=== PATIENT | female | born 2000 | race Caucasian/White ===

== ENCOUNTER 2025-08-26 12:05 | Outpatient (CLI) | payer BC ==
[2025-08-26 12:52] LABS: PLATELET COUNT (AUTO) 294 K/uL (150-450); RED BLOOD CELL COUNT(AUTO) 5.82 MIL/uL (4.0-5.2); RED CELL DISTRIBUTION WIDTH 16.5 % (11.5-15.0); WHITE BLOOD COUNT (AUTO) 8.8 K/uL (4.3-11.0)
[2025-08-26 13:12] LABS: APPEARANCE,URINE CLEAR (CLEAR); BLOOD, URINE NEGATIVE Ery/uL (NEGATIVE); LEUKOCYTE ESTERASE ,URINE NEGATIVE (NEGATIVE); NITRITE, URINE NEGATIVE (NEGATIVE); UGLUCOSE NEGATIVE (NEGATIVE)
[2025-08-26 13:15] LABS: ERYTHROCYTE SEDIMENTATION RATE 8 MM/HR (0-20)
[2025-08-26 13:18] LABS: IRON, SERUM 128 ug/dl (50-175)
[2025-08-26 13:22] LABS: LDL 70 mg/dL (0-99)
[2025-08-26 13:58] LABS: ASPARTATE AMINOTRANSFERASE 17 U/L (15-37); CALCIUM, SERUM 9.1 mg/dL (8.5-10.1); CREATININE 0.9 mg/dL (0.6-1.3); SODIUM SERUM 141 mmol/L (136-145); TOTAL PROTEIN, SERUM 8.0 g/dL (6.4-8.2); UREA NITROGEN, BLOOD 13 mg/dL (7-18)
[2025-08-27 11:12] LABS: VIT D, 25-HYDROXY 28.6 ng/mL (30.0-100.0)
== END 2025-08-26 23:59 | disposition home or self-care (01) ==
LOC: LAB 12:05
PROVIDERS: ATTEND Internal Medicine
DX: E55.9 Vitamin D deficiency, unspecified (principal)
CPT/HCPCS: 36415; 80053-TC; 80061-TC; 82172; 82306; 82728-TC; 83540-TC; 83735-TC; 84443-TC; 84550-TC; 85025-TC; 85652-TC; 86140-TC